=== PATIENT | female | born 1995 | race Caucasian/White ===

== ENCOUNTER 2018-11-09 23:20 | Emergency (ER) | payer BC ==
--- NOTE | 2018-11-09 23:23 | ED.ADGEN ---
Adult General Chief Complaint Chief Complaint ".. 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 .in [place]... and my hand got stuck when I was thrown off...'-" HPI HPI Patient is a 23 year old female who presents with above hx and complaints of right hand injury while riding a mechanical cold. Patient is right-hand dominant. Patient has obvious swelling of right hand. Pain appears to be located in the fifth metatarsal phalange. Mild displacement. Distal neurovascular intact. Capillary refill is equal to left hand. No other injuries occurred during the mechanical bull riding. She is normally healthy. Review of Systems Review of Systems s Constitutional: Denies fever or chills [] Eyes: Denies change in visual acuity, redness, or eye pain [] HENT: Denies nasal congestion or sore throat [] Respiratory: Denies cough or shortness of breath [] Cardiovascular: No additional information not addressed in HPI [] GI: Denies abdominal pain, nausea, vomiting, bloody stools or diarrhea [] : Denies dysuria or hematuria [] Musculoskeletal: complaints of Rt. hand injury Integument: Denies rash or skin lesions [] Neurologic: Denies headache, focal weakness or sensory changes [] Endocrine: Denies polyuria or polydipsia [] All other systems were reviewed and found to be within normal limits, except as documented in this note. Family History Family History Non-contributory Current Medications Current Medications Current Medications Medications (Trade) Dose Ordered Sig/Sascha Start Time Stop Time Status Last Admin Dose Admin Hydrocodone Bitartrate/ Ibuprofen (Vicoprofen 7.5-200) 2 tab 1X ONCE 11/10/18 00:30 11/10/18 00:31 DC Morphine Sulfate (Morphine 10mg Syringe) 10 mg 1X ONCE 11/10/18 00:30 11/10/18 00:31 DC 11/10/18 00:50 10 MG Allergies Allergies Allergies Coded Allergies Type Severity Reaction Last Updated Verified No Known Drug Allergies 11/10/18 No Physical Exam Physical Exam Constitutional: Well developed, well nourished, moderated acute distress, non-toxic appearance. [] HENT: Normocephalic, atraumatic, bilateral external ears normal, oropharynx moist, no oral exudates, nose normal. [] Eyes: PERRLA, EOMI, conjunctiva normal, no discharge. [] Neck: Normal range of motion, no tenderness, supple, no stridor. [] Cardiovascular:Heart rate regular rhythm, no murmur [] Lungs & Thorax: Bilateral breath sounds clear to auscultation [] Abdomen: Bowel sounds normal, soft, no tenderness, no masses, no pulsatile masses. [] Skin: Warm, dry, no erythema, no rash. [] Back: No tenderness, no CVA tenderness. [] Extremities: No tenderness, no cyanosis, no clubbing, ROM intact, no edema. [] Except findings in Rt. hand as per HPI Neurologic: Alert and oriented X 3, normal motor function, normal sensory function, no focal deficits noted. [] Psychologic: Affect anxious, judgement normal, mood normal. [] Current Patient Data Vital Signs Vital Signs Date Time Temp Pulse Resp B/P (MAP) Pulse Ox O2 Delivery O2 Flow Rate FiO2 11/10/18 00:54 98.8 98 Room Air 11/10/18 00:50 16 Lab Results Laboratory Tests Test 11/10/18 00:05 POC Urine HCG, Qualitative hcg negative (Negative) EKG EKG [] Radiology/Procedures Radiology/Procedures [][place] [address] IMAGING REPORT Signed PATIENT: RYAN ALMENDAREZ RACCOUNT: [id number] : 1995 LOCATION: ER AGE: 23 SEX: F EXAM STATUS: REG ER ORD. PHYSICIAN: ANIVAL OVALLES MD REASON: riding [employer] bull PROCEDURE: HAND RIGHT 3V Three-view right hand dated 11/10/2018. No comparison available. Clinical data indication: Pain after injury. FINDINGS: 3 views the right hand show a complete transverse fracture through the midshaft of fifth metacarpal with mild volar angulation at the fracture site. Osseous structures are otherwise intact. No periostitis or bone destruction. IMPRESSION: Angulated fracture of the mid shaft fifth metacarpal. Electronically signed by: Wilmer Lomas MD (11/10/2018 12:38 AM) [facility] DICTATED AND SIGNED BY: WILMER LOMAS MD DATE: 11/10/18 0038 CC: ANIVAL OVALLES MD; PCP,NO ~ Course & Med Decision Making Course & Med Decision Making Pertinent Labs and Imaging studies reviewed. (See chart for details). Patient to keep right hand elevated above heart. Ice packs as needed. Tylenol and ibuprofen for pain. Wear splint. Follow-up orthopedics and primary. Marked discomfort may take Vicoprofen. Return if any concerns. Distal neurovascular equal to left hand after application of splint. [] Final Impression Final Impression 1. Right hand[]Fx. 5th - Boxer Fx Dragon Disclaimer Dragon Disclaimer This electronic medical record was generated, in whole or in part, using a voice recognition dictation system. Dragon Disclaimer This chart was dictated in whole or in part using Voice Recognition software in a busy, high-work load, and often noisy Emergency Department environment. It may contain unintended and wholly unrecognized errors or omissions. ANIVAL OVALLES MD Nov 09, 2018 23:23
[2018-11-10] MEDS ORDERED: HYDR-1179 PO (00:24)
[2018-11-10] MEDS ORDERED: MORPHINE SULFATE 10 MG/ML SYRINGE. SQ ONE (00:30)
[2018-11-10] MEDS ORDERED: HYDROcodon/IBUPROFEN 7.5/200MG 1 TAB TABLET PO ONE (00:30)
--- NOTE | 2018-11-10 00:41 | RAD ---
Three-view right hand dated 11/10/2018. No comparison available. Clinical data indication: Pain after injury. FINDINGS: 3 views the right hand show a complete transverse fracture through the midshaft of fifth metacarpal with mild volar angulation at the fracture site. Osseous structures are otherwise intact. No periostitis or bone destruction. IMPRESSION: Angulated fracture of the mid shaft fifth metacarpal. Electronically signed by: Wilmer Lomas MD (11/10/2018 12:38 AM) [facility]
[2018-11-10 00:54] VITALS: BP 140/87
--- NOTE | 2018-11-10 02:11 | RAD ---
Three-view right hand dated 11/10/2018. Comparison made to study dated same day. Clinical data indication: Pain after injury. Splint placement FINDINGS: 3 views the right hand show persistent mild volar angulation at the fifth metacarpal shaft fracture site. Interval placement of splint. Alignment is unchanged. IMPRESSION: No significant interval change in fifth metacarpal fracture after splint placement. Electronically signed by: Wilmer Lomas MD (11/10/2018 2:08 AM) [facility]
== END 2018-11-10 02:17 | disposition home or self-care (01) ==
LOC: ER 23:20
DX: S62.326A Displaced fracture of shaft of fifth metacarpal bone, right hand, initial encounter for closed fracture (principal); W17.89XA Other fall from one level to another, initial encounter; Y93.I9 Activity, other involving external motion; Y92.89 Other specified places as the place of occurrence of the external cause; Y99.8 Other external cause status
CPT/HCPCS: 29125; 73120; 73130; 81025; 96372; 99284; J2270